=== PATIENT | female | born 1930 | race Caucasian/White ===

== ENCOUNTER 2017-12-19 09:51 | Emergency (ER) | payer MEDICARE, OTHER ==
[~2017-12-19 09:51] MED LIST: AEC81 PO; ATOR40TA71 PO; ISOS30TA6 PO; LEVO500T2 PO; METO50TA18 PO; MULT-1205 PO; PANT40TA25 PO
[2017-12-19] MEDS ORDERED: ACETAMINOPHEN 325 MG TAB ONE (12:28)
== END 2017-12-19 13:30 | disposition home or self-care (01) ==
LOC: EDH 09:51
DX: S80.01XA Contusion of right knee, initial encounter (principal); S40.011A Contusion of right shoulder, initial encounter; S40.012A Contusion of left shoulder, initial encounter; S70.02XA Contusion of left hip, initial encounter; S90.02XA Contusion of left ankle, initial encounter; S20.211A Contusion of right front wall of thorax, initial encounter; E78.5 Hyperlipidemia, unspecified; I10 Essential (primary) hypertension; Z95.0 Presence of cardiac pacemaker; Z79.82 Long term (current) use of aspirin; Z79.899 Other long term (current) drug therapy; Z88.0 Allergy status to penicillin; Z88.8 Allergy status to other drugs, medicaments and biological substances; W18.39XA Other fall on same level, initial encounter; Y93.01 Activity, walking, marching and hiking; Y92.89 Other specified places as the place of occurrence of the external cause; Y99.8 Other external cause status
CPT/HCPCS: 71100; 73030; 73521; 73562; 73610

== ENCOUNTER 2019-11-25 09:05 | Inpatient (IN) | payer OTHER ==
[~2019-11-25] VITALS: Ht 165.1 cm; Wt 77.1 kg
[~2019-11-25 09:05] MED LIST changes: +CEFD300C3 PO; -LEVO500T2 PO; -PANT40TA25 PO; +WARF3TAB59 PO
[2019-11-25 10:05] LABS: BASOPHILS % (AUTO) 0.5 % (0.0-5.0); EOSINOPHILS % (AUTO) 11.4 % (0.0-8.0); MEAN CORPUSCULAR HEMOGLOBIN 30.3 pg (27.0-33.0); MEAN CORPUSCULAR HGB CONC 32.2 g/dL (32.0-36.0); MONOCYTES % (AUTO) 7.9 % (3.0-13.0); NEUTROPHILS % (AUTO) 71.9 % (40.0-77.0); PLATELET COUNT (AUTO) 263 K/uL (130-400); RED BLOOD CELL COUNT(AUTO) 4.36 MIL/uL (4.00-5.50); RED CELL DISTRIBUTION WIDTH 16.3 % (11.0-15.5); WHITE BLOOD COUNT (AUTO) 14.9 K/uL (4.8-10.8)
[2019-11-25 10:18] LABS: PARTIAL THROMBOPLASTIN TIME 45.7 SEC (26.3-35.5)
[2019-11-25] MEDS ORDERED: ACETAMINOPHEN 325 MG TAB ONE (10:19)
[2019-11-25] MEDS ORDERED: ZOSYN 3.375GM+NS 50ML 50 ML IV ONE ×2 (10:19→19:52)
[2019-11-25 10:20] LABS: POTASSIUM 4.6 mmol/L (3.5-5.1)
[2019-11-25 10:32] LABS: INR 4.26 (0.85-1.15); PROTHROMBIN TIME 43.5 SEC (9.6-11.6)
[2019-11-25] MEDS ORDERED: IPRATROPIUM/ALBUTEROL SULFATE 3 ML SOLUTION IH ONE (10:53)
[2019-11-25] MEDS ORDERED: IPRATROPIUM/ALBUTEROL SULFATE 3 ML SOLUTION IH PRN (11:45)
[2019-11-25] MEDS ORDERED: LEVOFLOXACIN 500 MG/D5W 100 ML 100 ML IV ONE (12:00)
[2019-11-25] MEDS ORDERED: LEVOFLOXACIN 500 MG/D5W 100 ML 100 ML ONE (12:07)
[2019-11-25] MEDS ORDERED: ZOSYN 3.375GM+NS 50ML 50 ML IV SCH (18:00)
[2019-11-25] MEDS: IPRATROPIUM/ALBUTEROL SULFATE 3 ML SOLUTION IH SCH (18:00)
[2019-11-25] MEDS ORDERED: ONDANSETRON HCL 4 MG/2 ML VIAL ONE (18:35)
[2019-11-25 18:52] LABS: ABG BASE EXCESS -1.1 mmol/L (-2.0-3.0); ABG OXYGEN SATURATION 96.3 % (95.0-99.0); ABG PCO2 25 mmHg (32-45)
[2019-11-26] MEDS: IPRATROPIUM/ALBUTEROL SULFATE 3 ML SOLUTION IH SCH ×4 (00:15→23:10)
[2019-11-26] MEDS ORDERED: ZOSYN 3.375GM+NS 50ML 0 ML IV ONE (04:08)
[2019-11-26] MEDS ORDERED: ZOSYN 3.375GM+NS 50ML 50 ML IV ONE (04:17)
[2019-11-26 06:11] LABS: BASOPHILS % (AUTO) 0.5 % (0.0-5.0); EOSINOPHILS % (AUTO) 6.8 % (0.0-8.0); HEMATOCRIT 35.7 % (36-48); LYMPHOCYTES % (AUTO) 22.3 % (21.0-51.0); MEAN CORPUSCULAR HGB CONC 32.2 g/dL (32.0-36.0); MEAN CORPUSCULAR VOLUME 93.2 fL (79-99); MONOCYTES % (AUTO) 18.4 % (3.0-13.0); NEUTROPHILS % (AUTO) 51.7 % (40.0-77.0); PLATELET COUNT (AUTO) 235 K/uL (130-400); RED BLOOD CELL COUNT(AUTO) 3.83 MIL/uL (4.00-5.50); RED CELL DISTRIBUTION WIDTH 16.4 % (11.0-15.5); WHITE BLOOD COUNT (AUTO) 7.7 K/uL (4.8-10.8)
[2019-11-26] MEDS ORDERED: IPRATROPIUM/ALBUTEROL SULFATE 3 ML SOLUTION IH ONE (06:20)
[2019-11-26 06:34] LABS: PARTIAL THROMBOPLASTIN TIME 49.7 SEC (26.3-35.5)
[2019-11-26 07:00] LABS: INR 4.86 (0.85-1.15); PROTHROMBIN TIME 49.4 SEC (9.6-11.6)
[2019-11-26] MEDS ORDERED: GUAIFENESIN-DM 200/20 MG 10 ML ONE (07:27)
[2019-11-26 07:35] LABS: ABG BASE EXCESS 0.6 mmol/L (-2.0-3.0); ABG HCO3 21.5 mmol/L (21.0-28.0); ABG PCO2 26 mmHg (32-45)
[2019-11-26 09:21] VITALS: BP 143/67
--- NOTE | 2019-11-26 09:30 | NUR ---
ADMISSION PT RECEIVED FROM ER VIA BED. PT TRANSFERRED TO HOSPITAL BED, TOLERATED WELL. ORIENTED TO RM. A/O X 3. SOB ON EXERTION. NO DISTRESS NOTED. O2 NC @ L. (+) COUGH. DENIES CHEST PAIN OR DISCOMFORT. HX OF AFIB. DENIES PALPITATIONS. TELE: PACED. DENIES N/V AND/OR DIARRHEA. PERSONAL BELONGINGS @ BEDSIDE. HOME MEDS TO BE RECONCILED. INFORMED TO MAINTAIN BEDREST. PENDING PHYS THERAPY EVAL. INSTRUCTED TO CALL FOR ASSISTANCE. CALL YOHANA W/IN REACH.
[2019-11-26 09:39] LABS: CREATININE 1.2 mg/dL (0.5-1.5); POTASSIUM 3.5 mmol/L (3.5-5.1)
[2019-11-26 11:46] VITALS: BP 117/61
[2019-11-26] MEDS: ZOSYN 3.375GM+NS 50ML 50 ML IV SCH ×2 (13:24→20:36)
[2019-11-26] MEDS ORDERED: LEVOFLOXACIN 500 MG TABLET PO SCH (14:00)
[2019-11-26] MEDS ORDERED: METHYLPREDNISOLONE SOD SUCC 40MG/ML 1ML IVP SCH (14:00)
[2019-11-26] MEDS: GUAIFENESIN-DM 200/20 MG 10 ML PO PRN ×2 (14:16→22:01)
--- NOTE | 2019-11-26 14:58 | NUR ---
INITIAL Patient lives alone. Emergency contact is brother, Tanner Carter, [phone]. No home services. DME: cane, walker with seat, BPM. Patient reports that she is able to complete ADL's independently and drives. PCP is Dr. Miah Kaur. Pharmacy is [facility] located on [facility] in [place]. DCP is home. Addendum: 11/26/19 at 1500 by KELSEY SHAH SS Amended: Links added.
[2019-11-26 15:31] VITALS: BP 134/60
[2019-11-26 20:06] VITALS: BP 120/64
[2019-11-26 23:13] VITALS: BP 127/65
[2019-11-27 03:52] VITALS: BP 133/73
[2019-11-27] MEDS: ZOSYN 3.375GM+NS 50ML 50 ML IV SCH (04:10)
[2019-11-27 04:40] LABS: MEAN CORPUSCULAR HEMOGLOBIN 30.1 pg (27.0-33.0); MEAN CORPUSCULAR HGB CONC 32.4 g/dL (32.0-36.0); MEAN CORPUSCULAR VOLUME 92.9 fL (79-99); PLATELET COUNT (AUTO) 276 K/uL (130-400); RED BLOOD CELL COUNT(AUTO) 4.09 MIL/uL (4.00-5.50); RED CELL DISTRIBUTION WIDTH 16.5 % (11.0-15.5); WHITE BLOOD COUNT (AUTO) 6.5 K/uL (4.8-10.8)
[2019-11-27 04:55] LABS: MAGNESIUM 2.1 mg/dL (1.80-2.40)
[2019-11-27 05:01] LABS: INR 3.26 (0.85-1.15); PROTHROMBIN TIME 33.6 SEC (9.6-11.6)
--- NOTE | 2019-11-27 06:21 | NUR ---
Doctor Parra doing rounds. New orders received will carry out.
[2019-11-27] MEDS: IPRATROPIUM/ALBUTEROL SULFATE 3 ML SOLUTION IH SCH (07:23)
--- NOTE | 2019-11-27 07:30 | NUR ---
AM ASSESSMENT PT LAYING IN BED, HOB ELEVATED 30 DEGREES, RESTING. A/O X 3. NO SOB. NO DISTRESS NOTED. DENIES CHEST PAIN OR DISCOMFORT. DENIES PALPITATIONS. TELE: AFIB 100-110s. DENIES N/V AND/OR DIARRHEA. UP W/ASSISTANCE. PT TO BE DC HOME TODAY. INSTRUCTED TO CALL FOR ASSISTANCE. CALL YOHANA W/IN REACH.
[2019-11-27 08:01] VITALS: BP 132/70
[2019-11-27] MEDS ORDERED: METHYLPREDNISOLONE SOD SUCC 40MG/ML 1ML IVP SCH (09:00)
--- NOTE | 2019-11-27 09:10 | NUR ---
STATUS PT HR AFIB 120s. PT LAYING IN BED, WATCHING TV. STATES FEELING PALPITATIONS BUT "THEY WENT AWAY." PT CONTINUES TO STATE PALPITATIONS HAPPEN W/HER AFIB. DR YOUSSEF NOTIFIED. HOME METOPROLOL DOSE GIVEN @ THIS TIME. WILL CONTINUE TO MONITOR. PT PENDING HOME O2 EVAL. PT WOULD LIKE TO PROCEED W/DISCHARGE HOME TODAY.
[2019-11-27] MEDS ORDERED: METOPROLOL SUCCINATE 50 MG TAB.SR.24H PO SCH (09:15)
[2019-11-27] MEDS ORDERED: METOPROLOL SUCCINATE 50 MG TAB.SR.24H PO ONE (09:17)
--- NOTE | 2019-11-27 10:06 | NUR ---
Patient unable to tolerate 6min walked; Tolerated approx. 3mins, patient asked to stopped test. Addendum: 11/27/19 at 1007 by WALKER BURNETT Amended: Links added.
[2019-11-27] MEDS ORDERED: MULTIVITAMIN WITH MINERALS TABLET PO SCH (10:07)
--- NOTE | 2019-11-27 10:07 | NUR ---
STATUS PT'S HEART RATE AFTER HOME O2 EVAL DONE 150s. PT DOES NOT QUALIFY FOR HOME O2. PT WINDED AFTER AMBLATING IN HALLWAY. PT PLACED ON O2 NC @ 2L. WILL CONTINUE TO MONITOR. PT REFUSES TO HOLD DC HOME FOR TODAY.
--- NOTE | 2019-11-27 10:25 | NUR ---
DISCHARGE PT CONTINUES TO WANT TO GO HOME TODAY. HR 120s. TELE DAISY REMOVED @ THIS TIME. IV X 1 DC'D @ THIS TIME. VERBAL & WRITTEN DISCHARGE INSTRUCTIONS REVIEWED & GIVEN TO PT. QUESTIONS ENCOURAGED & CLARIFIED. PROPER CARE & MGT OF PNEUMONIA REVIEWED. PT INFORMED DR YOUSSEF TO CALL IN PRESCRIPTION TO PT'S PHARMACY IN FILE. PT TO F/U W/DR YOUSSEF ON 12/01/2019. REMINDED PT TO NOT TAKE HOME DOSE OF COUMADIN UNTIL TOLD BY DR YOUSSEF TO RESUME TAKING IT. STATES UNDERSTANDING. PT ASKED TO SEE DR YOUSSEF BEFORE SUNDAY OR COME TO THE EMERGENCY IF ELEVATED HEART RATE/PALPITATIONS RESUME. CALL PLACED BY PT TO BROTHER TO STATEMENT DISTRIBUTION CLERK FROM HOSPITAL. PT WILL NOTIFY STAFF WHEN BROTHER ARRIVES TO BE TAKEN TO PRIVATE VEHICLE.
--- NOTE | 2019-11-27 10:40 | NUR ---
DISCHARGE PT 'S BROTHER HERE TO TAKE PT HOME. PT TAKEN TO PRIVATE VEHICLE VIA WC BY MYSELF, Isauro REBOLLEDO RN, AND CHANNEL WORKER ALEJANDRINA. TOLERATED WELL. NO DISTRESS NOTED. NO SOB.
--- NOTE | 2019-11-27 14:18 | NUR ---
PATIENT WAS DISCHARGED THIS AM. Addendum: 11/27/19 at 1447 by ROBINSON POON, PT PT Amended: Links added.
[2019-11-27] MEDS ORDERED: ATORVASTATIN CALCIUM 40 MG TABLET PO SCH (21:00)
[2019-11-28] MEDS ORDERED: ASPIRIN 81 MG EC TAB PO SCH (09:00)
[2019-11-28] MEDS ORDERED: METOPROLOL TARTRATE 50 MG TAB PO SCH (09:00)
[2019-11-28] MEDS ORDERED: ISOSORBIDE MONO 30MG TAB SR PO SCH (09:00)
== END 2019-11-27 10:40 | disposition home or self-care (01) | DRG 194 ==
LOC: EDH 09:05 → EDHIP 09:39 → 2AH 11-26 09:19 → UNDODISIN 11-27 10:20
PROVIDERS: ADMIT Family Medicine; ATTEND Family Medicine
DX: J18.9 Pneumonia, unspecified organism (principal); J44.0 Chronic obstructive pulmonary disease with (acute) lower respiratory infection; D68.59 Other primary thrombophilia; I10 Essential (primary) hypertension; J84.10 Pulmonary fibrosis, unspecified; I25.10 Atherosclerotic heart disease of native coronary artery without angina pectoris; E87.6 Hypokalemia; R09.02 Hypoxemia; I48.91 Unspecified atrial fibrillation; E78.5 Hyperlipidemia, unspecified; Z95.0 Presence of cardiac pacemaker; Z87.01 Personal history of pneumonia (recurrent); Z86.73 Personal history of transient ischemic attack (TIA), and cerebral infarction without residual deficits; Z88.0 Allergy status to penicillin; Z88.8 Allergy status to other drugs, medicaments and biological substances; Z91.041 Radiographic dye allergy status; Z79.01 Long term (current) use of anticoagulants
CPT/HCPCS: 36415; 36600; 71250; 80048; 82803; 83735; 85025; 85027; 85610; 85730; 87040; 87071; 87205; 94640; 94664; 94760; G0378; J1956; J2405; J2543; J2920

== ENCOUNTER 2019-11-30 08:20 | Inpatient (IN) | payer OTHER ==
[~2019-11-30] VITALS: Ht 165.1 cm; Wt 76.7 kg
[~2019-11-30 08:20] MED LIST changes: -CEFD300C3 PO
[2019-11-30] MEDS ORDERED: ONDANSETRON HCL 4 MG/2 ML VIAL ONE ×2 (08:39→08:51)
[2019-11-30 09:18] LABS: BASOPHILS % (AUTO) 0.4 % (0.0-5.0); EOSINOPHILS % (AUTO) 5.1 % (0.0-8.0); HEMATOCRIT 41.9 % (36-48); LYMPHOCYTES % (AUTO) 19.5 % (21.0-51.0); MEAN CORPUSCULAR HEMOGLOBIN 29.9 pg (27.0-33.0); MEAN CORPUSCULAR HGB CONC 32.5 g/dL (32.0-36.0); MEAN CORPUSCULAR VOLUME 92.1 fL (79-99); NEUTROPHILS % (AUTO) 64.2 % (40.0-77.0); PLATELET COUNT (AUTO) 370 K/uL (130-400); RED BLOOD CELL COUNT(AUTO) 4.55 MIL/uL (4.00-5.50); WHITE BLOOD COUNT (AUTO) 12.8 K/uL (4.8-10.8)
[2019-11-30] MEDS ORDERED: METOCLOPRAMIDE 10 MG/2 ML VIAL ONE (09:30)
[2019-11-30] MEDS ORDERED: SODIUM CHLORIDE 0.9% 1000ML 1,000 ML IV ONE (09:31)
[2019-11-30 09:42] LABS: CREATININE 1.3 mg/dL (0.5-1.5); POTASSIUM 4.1 mmol/L (3.5-5.1)
[2019-11-30 09:47] LABS: ALBUMIN 3.2 g/dL (3.5-5.0); BILIRUBIN,TOTAL 0.8 mg/dL (0.2-1.0); TOTAL PROTEIN, SERUM 7.1 g/dL (6.0-8.3)
[2019-11-30 09:53] LABS: B-TYPE NATRIURETIC PEPTIDE 88 pg/mL (0-100)
[2019-11-30 10:05] LABS: INR 1.74 (0.85-1.15); PARTIAL THROMBOPLASTIN TIME 29.4 SEC (26.3-35.5); PROTHROMBIN TIME 18.4 SEC (9.6-11.6)
[2019-11-30] MEDS ORDERED: DILTIAZEM HCL 5 MG/ML 10 ML VIAL IV ONE (10:28)
[2019-11-30] MEDS ORDERED: SODIUM CHLORIDE 0.9% 100 ML IV ONE (11:09)
[2019-11-30] MEDS ORDERED: DILTIAZEM HCL 125 MG/25 ML VIAL IV ONE (11:09)
[2019-11-30] MEDS ORDERED: DILTIAZEM 125MG+100 ML NS 125 ML IV SCH (11:45)
[2019-11-30] MEDS ORDERED: ENOXAPARIN SODIUM 40 MG/0.4 ML SYRINGE SQ SCH (11:45)
[2019-11-30] MEDS ORDERED: ISOSORBIDE MONO 30MG TAB SR PO ONE (11:46)
[2019-11-30] MEDS ORDERED: METOPROLOL TARTRATE 50 MG TAB ONE ×2 (11:46→22:00)
[2019-11-30] MEDS ORDERED: ASPIRIN 81MG TAB.CHEW ONE (11:46)
[2019-11-30] MEDS ORDERED: ENOXAPARIN SODIUM 40 MG/0.4 ML SYRINGE SQ ONE (11:51)
[2019-11-30] MEDS ORDERED: WARFARIN SODIUM 2.5 MG TAB PO SCH (12:00)
[2019-11-30 19:52] LABS: TROPONIN I 0.05 ng/mL (0.00-0.06)
[2019-11-30] MEDS ORDERED: ATORVASTATIN CALCIUM 40 MG TABLET PO SCH (21:00)
[2019-11-30] MEDS ORDERED: ATORVASTATIN CALCIUM 40 MG TABLET ONE (22:10)
[2019-11-30 22:39] VITALS: BP 129/69
[2019-12-01] VITALS: BP 125/64
[2019-12-01 01:23] LABS: HEMATOCRIT 38.7 % (36-48); MEAN CORPUSCULAR HGB CONC 32.6 g/dL (32.0-36.0); MEAN CORPUSCULAR VOLUME 92.1 fL (79-99); PLATELET COUNT (AUTO) 340 K/uL (130-400); RED CELL DISTRIBUTION WIDTH 16.2 % (11.0-15.5); WHITE BLOOD COUNT (AUTO) 12.7 K/uL (4.8-10.8)
[2019-12-01 01:35] LABS: INR 1.67 (0.85-1.15); PROTHROMBIN TIME 17.7 SEC (9.6-11.6)
[2019-12-01 01:44] LABS: CARBON DIOXIDE 26 mmol/L (21-32); CHLORIDE 106 mmol/L (101-111); CREATINE KINASE, TOTAL 45 U/L (21-232); GLOMERULAR FILTR. RATE CALC 56 mL/min (>60); GLUCOSE,RANDOM 108 mg/dL (70-105); MYOGLOBIN 103 ng/mL (10-92); POTASSIUM 3.4 mmol/L (3.5-5.1); SODIUM SERUM 141 mmol/L (136-145); TROPONIN I < 0.04 ng/mL (0.00-0.06); UREA NITROGEN, BLOOD 13 mg/dL (7-18)
[2019-12-01 03:39] VITALS: BP 107/55
[2019-12-01 07:59] VITALS: BP_SYST 114; BP_SYST 123; BP_DIAS 44; BP_DIAS 67
--- NOTE | 2019-12-01 08:00 | NUR ---
CARDIZEM GTT TELE: PACED. CARDIZEM GTT DC'D @ THIS TIME. METOPROLOL PO TO BE GIVEN THIS AM.
[2019-12-01 08:06] LABS: CREATINE KINASE, TOTAL 42 U/L (21-232); MYOGLOBIN 111 ng/mL (10-92); TROPONIN I < 0.04 ng/mL (0.00-0.06)
--- NOTE | 2019-12-01 08:45 | NUR ---
AM ASSESSMENT PT SITTING IN CHAIR, WATCHING TV. A/O X 3. NO SOB. NO DISTRESS NOTED. DENIES CHEST PAIN OR DISCOMFORT. DENIES PALPITATIONS. TELE: PACED. DENIES N/V AND/OR DIARRHEA. UP W/ASSISTANCE. INSTRUCTED TO CALL FOR ASSISTANCE. ALL MULLER W/IN REACH.
[2019-12-01] MEDS ORDERED: ISOSORBIDE MONO 30MG TAB SR PO SCH (09:00)
[2019-12-01] MEDS ORDERED: ASPIRIN 81 MG EC TAB PO SCH (09:00)
[2019-12-01] MEDS ORDERED: METOPROLOL SUCCINATE 50 MG TAB.SR.24H PO SCH (09:00)
--- NOTE | 2019-12-01 11:20 | NUR ---
DISCHARGE VERBAL & WRITTEN DISCHARGE INSTRUCTIONS REVIEWED & GIVEN TO PT. QUESTIONS ENCOURAGED & CLARIFIED. PROPER CARE & MGT OF AFIB W/RVR REVIEWED. PT TO CONTINUE TAKING HOME MEDICATIONS. COUMADIN TO BE RESUMED. PT TO F/U W/DR YOUSSEF. TELE DAISY REMOVED @ THIS TIME. PT TO GATHER PERSONAL BELONGINGS. WILL NOTIFY STAFF WHEN BROTHER ARRIVES TO TAKE PT HOME.
[2019-12-01 11:34] VITALS: BP 114/68
--- NOTE | 2019-12-01 12:00 | NUR ---
DISCHARGE BROTHER HERE TO TAKE PT HOME. PT TAKEN TO PRIVATE VEHICLE VIA WC BY Elvia FOREMAN RN. NO DISTRESS NOTED.
--- NOTE | 2019-12-01 13:14 | NUR ---
DC PLAN PATIENT DISCHARGED HOME ALREADY GONE NO NEEDS VERBALIZED BY NURSING STAFF. FROM PREVIOUS ADMISSION 11/26 PATIENT LIVES ALONE, BRANDON VAZQUEZ. Addendum: 12/01/19 at 1315 by CAESAR ISRAEL RN CM Amended: Links added.
[2019-12-01] MEDS ORDERED: WARFARIN SODIUM 2.5 MG TAB PO SCH (16:00)
== END 2019-12-01 12:00 | disposition home or self-care (01) | DRG 309 ==
LOC: EDH 08:20 → EDHIP 11:25 → 2DH 22:28
PROVIDERS: ADMIT Family Medicine; ATTEND Family Medicine
DX: I48.91 Unspecified atrial fibrillation (principal); D68.59 Other primary thrombophilia; E87.6 Hypokalemia; F41.9 Anxiety disorder, unspecified; I10 Essential (primary) hypertension; J44.9 Chronic obstructive pulmonary disease, unspecified; Z79.01 Long term (current) use of anticoagulants; Z95.0 Presence of cardiac pacemaker; Z79.4 Long term (current) use of insulin; Z88.5 Allergy status to narcotic agent; Z91.041 Radiographic dye allergy status
CPT/HCPCS: 36415; 71045; 80048; 80053; 82550; 83605; 83735; 83874; 83880; 84484; 85025; 85027; 85610; 85730; 93005; G0378; J1650; J2405; J2765; J3490; J7030